=== PATIENT | male | born 1935 | race Caucasian/White ===

== ENCOUNTER → 2016-11-02 | Outpatient (CLI) | payer MEDICARE, OTHER ==
[~2016-11-02] MED LIST: AMLO5TAB2 PO; ATOR20TA58 PO; BARIUM SULFATE 96% 397 GM ENEMA. PR ONE; CHOL20002 PO; CHOL500016 PO; HYDR-971 PO; IBUP1TAB12 PO; IBUPROFEN PO; LOSA100T6 PO; OMEP40CA2 PO; OMEP40CA5 PO; POTA20TA4 PO; TAMS0.4C2 PO
--- NOTE | 2016-11-02 12:01 | RAD ---
ELYSE, 11/02/2016: History: [employer] film for barium enema, incomplete colonoscopy The route salesman view of the abdomen demonstrates a large amount of stool in the colon. Upon questioning the patient reported that he had not undergone a bowel preparation. The barium enema will therefore need to be rescheduled to follow a normal bowel prep.
== END | disposition home or self-care (01) ==
LOC: RAD 10:41
PROVIDERS: ATTEND Internal Medicine Gastroenterology
DX: Z91.19 Patient's noncompliance with other medical treatment and regimen (principal)
CPT/HCPCS: 74270